=== PATIENT | male | born 1935 | race Caucasian/White ===

== ENCOUNTER 2017-07-13 10:54 | Inpatient (IN) ==
[2017-07-13] MEDS ORDERED: ONDANSETRON 4 MG/2 ML VIAL IV PRN (11:11)
[2017-07-13] MEDS ORDERED: ASPIRIN 325 MG TABLET PO STA (11:11)
[2017-07-13] MEDS ORDERED: MORPHINE 2 MG/1 ML SYRINGE IV PRN (11:11)
[2017-07-13] MEDS ORDERED: ENOXAPARIN 100 MG/ML SYRINGE SUBCUT STA (11:11)
[2017-07-13] MEDS ORDERED: NITROGLYCERIN 2% OINT 1 INCH/GM PACK TOP STA (11:23)
[2017-07-13] MEDS ORDERED: ALUM/MAG/SIMETH/LIDO VISC 1:1 30 ML BOTTLE PO STA (11:29)
[2017-07-13] MEDS ORDERED: ENOXAPARIN 100 MG/ML SYRINGE SUBCUT ONE (11:32)
[2017-07-13] MEDS ORDERED: ASPIRIN 325 MG TABLET ONE (11:32)
[2017-07-13] MEDS ORDERED: NITROGLYCERIN 2% OINT 1 INCH/GM PACK TOP ONE (11:32)
[2017-07-13] MEDS ORDERED: ALUM/MAG/SIMETH/LIDO VISC 1:1 30 ML BOTTLE PO ONE (11:32)
[2017-07-13] MEDS ORDERED: MORPHINE 2 MG/1 ML SYRINGE ONE (11:32)
[2017-07-13] MEDS ORDERED: ONDANSETRON 4 MG/2 ML VIAL ONE (11:32)
[2017-07-13 11:39] LABS: Basophils # 0.1 10*3/uL (0.0-0.2); Basophils % 0.5 % (0.0-0.8); Eosinophils # 0.2 10*3/uL (0.0-0.87); Eosinophils % 1.4 % (0.00-10.9); Hematocrit 42.2 VOL% (42.0-52.0); Hemoglobin 14.1 GM/DL (14.0-18.0); Immature Granulocytes % 0.5 %; Immature Granulocytes Absolute 0.06 #; Lymphocytes # 1.7 10*3/uL (1.4-4.0); Lymphocytes % 15.4 % (21.2-54.2); Mean Corpuscular HGB Conc 33.4 GM/DL (32-36); Mean Corpuscular Hemoglobin 33 PG (27-34); Mean Corpuscular Volume 97.9 FL (87-102); Mean Platelet Volume 10.6 FL (9.6-12.0); Monocytes # 0.9 10*3/uL (0.11-0.8); Monocytes % 8.4 % (1.7-12.7); Neutrophils # 8.1 10*3/uL (1.4-7.4); Neutrophils % 73.8 % (38.7-73.9); Platelet Count 153 T/CUMM (130-400); Red Blood Count 4.31 MC/CUMM (3.8-5.5); Red Cell Distribution Width 12.7 % (9.3-17.3)
[2017-07-13 11:49] LABS: PT Patient Result 10.7 SECS; Partial Thromboplastin Time 27.8 SECS (0-40)
[2017-07-13 11:57] LABS: Albumin 3.7 G/DL (3.4-5.0); Bilirubin,Total 0.6 MG/DL (0.2-1.0); Osmolality,Calculated 284.3 MOS/KG (273-304); Potassium 4.3 MMOL/L (3.5-5.1); Total Protein 7.1 G/DL (6.4-8.3)
[2017-07-13] MEDS ORDERED: hydrALAZINE 20 MG/1 ML VIAL ONE (13:22)
[2017-07-13] MEDS ORDERED: VANCOMYCIN 1,000 MG VIAL ONE (13:27)
[2017-07-13] MEDS ORDERED: CEFUROXIME INJ 1,500 MG in SYRINGE 1 EACH IV ONE (13:30)
[2017-07-13] MEDS ORDERED: LABETALOL 20 MG/4 ML SYRINGE IV ONE (13:34)
[2017-07-13] MEDS ORDERED: MORPHINE 10 MG/1 ML VIAL ONE (13:35)
[2017-07-13] MEDS ORDERED: CEFUROXIME 1,500 MG VIAL ONE ×2 (13:45→13:56)
[2017-07-13] MEDS ORDERED: hydrALAZINE 20 MG/1 ML VIAL IV STA (13:51)
[2017-07-13 14:08] VITALS: BP 157/80
[2017-07-13 14:50] LABS: Hematocrit Heart Surgery 29.5 PERCENT (42-52); Hemoglobin Heart Surgery 9.5 G/DL (14.0-18.0); PCO2 Patient Temp Venous 46.3 MM HG; PH Patient Temp Venous 7.214; PO2 Patient Temp Venous 27.5 MM HG; Potassium Heart/CVR 4.1 MMOL/L (3.5-5.1); VBG Base Excess -8.9 MEQ/L (0-4); VBG HCO3 16.4 MEQ/L (24-28); VBG PCO2 46.3 MMHG (41-51); VBG PH 7.214; VBG PO2 27.5 MMHG (17-40)
[2017-07-13] MEDS ORDERED: CHLORHEXIDINE 4% SOLN 118 ML BOTTLE TOP SCH (15:00)
[2017-07-13 15:32] LABS: Hemoglobin Heart Surgery 11.5 G/DL (14.0-18.0); PCO2 Patient Temp Venous 57.5 MM HG; PH Patient Temp Venous 7.282; PO2 Patient Temp Venous 104.8 MM HG; Potassium Heart/CVR 4.2 MMOL/L (3.5-5.1); VBG Base Excess -0.9 MEQ/L (0-4); VBG HCO3 26.5 MEQ/L (24-28); VBG Oxygen Saturation 96.7 %; VBG PCO2 57.5 MMHG (41-51); VBG PH 7.282; VBG PO2 104.8 MMHG (17-40)
[2017-07-13] MEDS ORDERED: HEPARIN/NACL 0.9% 2 UNITS/ML 500 ML IV ONE (15:38)
[2017-07-13] MEDS ORDERED: NITROGLYCERIN DRIP 50 MG/250 ML BOTTLE IV ONE (15:38)
[2017-07-13 15:39] LABS: Apearance,Urine CLEAR (Clear); Bilirubin,Urine Negative (Negative); Blood, Urine Negative (Negative); Glucose,Urine (UA) Negative (Negative); Ketones,Urine Negative (Negative); Mucus,Urine Occasional /LPF (Occasional); Nitrite,Urine Negative (Negative); Protein,Urine Negative; RBC,Urine 3 /HPF (0-4); Squamous Epithelial Cell,Urine Occasional /HPF (0-10); Urine Color Yellow (Yellow); Urine Specific Gravity 1.015 (1.001-1.035); Urine Urobilinogen < 2.0 EU/DL (0.2-1.0); WBC,Urine 1 /HPF (0-6)
[2017-07-13] MEDS ORDERED: methylPREDNISolone SOD SUC 1,000 MG/8 ML VIAL ONE (16:39)
[2017-07-13] MEDS ORDERED: ALBUMIN 25% 25 GM/100 ML VIAL IV ONE (16:39)
[2017-07-13] MEDS ORDERED: MANNITOL 12.5 GM/50 ML VIAL IV ONE (16:39)
[2017-07-13] MEDS ORDERED: HEPARIN 10,000 UNIT/10 ML VIAL ONE (16:39)
[2017-07-13] MEDS ORDERED: FUROSEMIDE 20 MG/2 ML VIAL ONE (16:39)
[2017-07-13] MEDS ORDERED: DEXTROSE 5% KCL 20 MEQ 40 MEQ/2,000 ML BAG IV ONE (16:39)
[2017-07-13] MEDS ORDERED: MAGNESIUM SULFATE 1 GM/2 ML VIAL ONE (16:39)
[2017-07-13] MEDS ORDERED: SODIUM BICARBONATE 50 MEQ/50 ML SYRINGE IV ONE ×2 (16:39→16:45)
[2017-07-13] MEDS ORDERED: PHENYLEPHRINE DRIP 20 MG/250 ML PREMIX IV ONE (16:40)
[2017-07-13] MEDS ORDERED: POTASSIUM CHLORIDE 20 MEQ/10 ML VIAL ONE (16:40)
[2017-07-13] MEDS ORDERED: SEVOFLURANE 1 UNIT/15 MINUTE INH ONE (16:45)
[2017-07-13] MEDS ORDERED: MIDAZOLAM 10 MG/2 ML VIAL ONE (16:46)
[2017-07-13] MEDS ORDERED: KETAMINE 500 MG/10 ML VIAL ONE (16:46)
[2017-07-13] MEDS ORDERED: SODIUM CHLORIDE 0.9% 250 ML IV ONE (16:47)
[2017-07-13] MEDS ORDERED: TRANEXAMIC ACID 1,000 MG/10 ML VIAL IV ONE (16:47)
[2017-07-13] MEDS ORDERED: SODIUM CHLORIDE 0.9% 1,000 ML IV ONE (16:47)
[2017-07-13] MEDS ORDERED: LACTATED RINGERS 1,000 ML IV ONE (16:47)
[2017-07-13] MEDS ORDERED: VECURONIUM 10 MG VIAL IV ONE (16:47)
[2017-07-13] MEDS ORDERED: SODIUM CHLORIDE 0.9% 100 ML IV ONE (16:47)
[2017-07-13] MEDS ORDERED: EPINEPHrine 1 MG/ML VIAL ONE (16:47)
[2017-07-13] MEDS ORDERED: CHLORHEXIDINE 0.12% ORAL RINSE 60 ML BOTTLE SWISH/SPIT SCH (21:00)
== END 2017-07-13 16:04 | disposition expired | DRG 271 ==
LOC: EDBD → EDUNIT# → N.ED 10:54 → N.EDINP 13:30 → N.CVR 13:40
PROVIDERS: ADMIT Thoracic Surgery (Cardiothoracic Vascular Surgery); ATTEND Thoracic Surgery (Cardiothoracic Vascular Surgery)